=== PATIENT | female | born 1990 | race American Indian/Alaskan Native ===

== ENCOUNTER 2020-07-23 01:08 | Emergency (ER) | payer MEDICAID ==
[2020-07-23 02:25] VITALS: BP 130/80
[2020-07-23 02:26] LABS: Basophils % (Auto) 0.2 % (0.0-1.8); Eosinophils # (Auto) 0.2 K/mm3 (0.0-0.4); Eosinophils % (Auto) 2.7 % (0.0-4.3); Hemoglobin 11.2 gm/dl (10.1-14.3); Lymphocytes # (Auto) 2.1 K/mm3 (1.2-5.4); Mean Corpuscular HGB Conc 34 % (30-34); Mean Corpuscular Volume 87 fl (79-97); Monocytes # (Auto) 0.7 K/mm3 (0.0-0.8); Monocytes % (Auto) 8.6 % (0.0-7.3); Platelet Count 305 K/mm3 (140-440); Red Blood Count 3.81 M/mm3 (3.65-5.03); Red Cell Distribution Width 12.9 % (13.2-15.2)
[2020-07-23 02:40] LABS: Alanine Aminotransferase 11 units/L (7-56); Albumin 3.9 g/dL (3.9-5); Blood Urea Nitrogen 13 mg/dL (7-17); Calcium 9.2 mg/dL (8.4-10.2); Hemolysis Index 2
[2020-07-23 02:47] LABS: BUN/Creatinine Ratio 19
[2020-07-23] MEDS ORDERED: levETIRAcetam 500 MG/5 ML ORAL LIQD PO ONE (03:25)
--- NOTE | 2020-07-23 03:30 | Emergency Department Report ---
ED Seizure HPI - General Chief Complaint: Seizure Stated Complaint: SEIZURE Time Seen by Provider: 07/23/20 02:31 Source: patient Mode of arrival: Ambulatory Limitations: No Limitations - History of Present Illness Initial Comments: 30-year-old 12-week female with a past medical history of seizures noncompliant with Keppra x1 year presents to the hospital complaining of having an unwitnessed seizure at home prior to arrival. Patient states she had an aura over her eyes before starts and then woke up on the floor. Last seizure prior to this with just before Thanksgiving she did. She denies any pain currently, tongue laceration, urinary incontinence. She is undergoing care and states her gestational age is based on OB work-up as opposed to LMP. They have been trying to arrange for outpatient neurology follow-up to reinitiate seizure medication however, there has been a delay in scheduling his follow-up. Patient does not currently have a neurologist. No pelvic pain or vaginal bleeding reported - Related Data Previous Rx's Medication Instructions Recorded Last Taken Type levETIRAcetam [Keppra TAB] 750 mg PO BID #60 tablet 07/23/20 Unknown Rx Allergies Allergy/AdvReac Type Severity Reaction Status Date / Time No Known Allergies Allergy Unverified 07/23/20 01:25 ED Review of Systems ROS: Stated complaint: SEIZURE Other details as noted in HPI Comment: All other systems reviewed and negative ED Past Medical Hx - Past Medical History Hx Seizures: Yes - Surgical History Past Surgical History?: No - Social History Smoking Status: Never Smoker Substance Use Type: None - Medications Home Medications: Home Medications Medication Instructions Recorded Confirmed Last Taken Type levETIRAcetam [Keppra TAB] 750 mg PO BID #60 tablet 07/23/20 Unknown Rx ED Physical Exam - General Limitations: No Limitations - Other Other exam information: General: No acute distress Head: Atraumatic Eyes: normal appearance ENT: Moist mucous membranes Neck: Normal appearance, no midline tenderness Chest: Clear to auscultation bilaterally CV: Regular rate and rhythm Abdomen: Soft, normal bowel sounds, nontender, nondistended, no rebound or guard ing Back: Normal inspection Extremity: Normal inspection, full range of motion Neuro: Alert O x 3, no facial asymmetry, speech clear, no gross motor sensory deficit Psych: Appropriate behavior Skin: No rash ED Course Vital Signs 07/23/20 01:26 Temperature 98.0 F Pulse Rate 90 Respiratory 18 Rate Blood Pressure 130/80 O2 Sat by Pulse 97 Oximetry - Consultations Consultation #1: 07/23/20 03:28 Case discussed with on-call neurologist who recommends Keppra due to low side effect profile at previous dose and to make sure patient is taking her folic acid ED Medical Decision Making - Lab Data Result diagrams: 07/23/20 01:55 07/23/20 01:55 Lab Results 07/23/20 07/23/20 07/23/20 Range/Units 01:55 01:55 01:55 WBC 8.1 (4.5-11.0) K/mm3 RBC 3.81 (3.65-5.03) M/mm3 Hgb 11.2 (10.1-14.3) gm/dl Hct 33.0 (30.3-42.9) % MCV 87 (79-97) fl MCH 30 (28-32) pg MCHC 34 (30-34) % RDW 12.9 L (13.2-15.2) % Plt Count 305 (140-440) K/mm3 Lymph % (Auto) 26.0 (13.4-35.0) % [place] % (Auto) 8.6 H (0.0-7.3) % Eos % (Auto) 2.7 (0.0-4.3) % Baso % (Auto) 0.2 (0.0-1.8) % Lymph # (Auto) 2.1 (1.2-5.4) K/mm3 [place] # (Auto) 0.7 (0.0-0.8) K/mm3 Eos # (Auto) 0.2 (0.0-0.4) K/mm3 Baso # (Auto) 0.0 (0.0-0.1) K/mm3 Seg Neutrophils % 62.5 (40.0-70.0) % Seg Neutrophils # 5.0 (1.8-7.7) K/mm3 Sodium 132 L (137-145) mmol/L Potassium 4.5 (3.6-5.0) mmol/L Chloride 96.9 L (98-107) mmol/L Carbon Dioxide 25 (22-30) mmol/L Anion Gap 15 mmol/L BUN 13 (7-17) mg/dL Creatinine 0.7 (0.6-1.2) mg/dL Estimated GFR > 60 ml/min BUN/Creatinine Ratio 19 % Glucose 110 H (65-100) mg/dL Calcium 9.2 (8.4-10.2) mg/dL Total Bilirubin 0.20 (0.1-1.2) mg/dL AST 29 (5-40) units/L ALT 11 (7-56) units/L Alkaline Phosphatase 65 (35-129) units/L Total Protein 8.0 (6.3-8.2) g/dL Albumin 3.9 (3.9-5) g/dL Albumin/Globulin Ratio 1.0 % HCG, Qual Positive (Negative) - Medical Decision Making Patient had a seizure earlier today prior to arrival. She does not currently have any symptoms. She has not been on medications x1 year. Case discussed with neurologist on-call who states Keppra has a low side effect profile and is recommended in . Patient cannot remember if she was on 500 mg or 750 mg twice daily. She will be restarted on Keppra at 750 mg twice daily encouraged to continue taking her vitamins with folic acid. First dose provided in the ED. Labs reviewed and unremarkable with exception of mild hyponatremia/hypochloremia Critical Care Time: No Critical care attestation.: If time is entered above; I have spent that time in minutes in the direct care of this critically ill patient, excluding procedure time. ED Disposition Clinical Impression: Seizure, 12 weeks gestation of , Noncompliance with medication regimen Disposition: - TO HOME OR SELFCARE Is pt being admited?: No Condition: Stable Instructions: Seizure, Adult, [id number] Additional Instructions: Take the medication as prescribed. Follow-up with your doctor or doctor/clinic provided. Return if symptoms worsen as indicated by your discharge instructions. Prescriptions: levETIRAcetam [Keppra TAB] 750 mg PO BID #60 tablet Referrals: PRIMARY CARE, [Primary Care Provider] - 3-5 Days NII TRINH MD [Staff Physician] - 3-5 Days (Neurologist) your, account specialist [Other] - 7-10 days Time of Disposition: 03:32
== END 2020-07-23 04:07 | disposition home or self-care (01) ==
LOC: ED 01:08
DX: O26.891 Other specified pregnancy related conditions, first trimester (principal); R56.9 Unspecified convulsions; Z91.14 Patient's other noncompliance with medication regimen; Z3A.12 12 weeks gestation of pregnancy; Z79.899 Other long term (current) drug therapy
CPT/HCPCS: 36415; 80053; 84703; 85025